=== PATIENT | male | born 1960 | race Caucasian/White ===

== ENCOUNTER 2016-09-11 16:03 | Inpatient (IN) | payer BC ==
[~2016-09-11 16:03] MED LIST: GLYCOPYRROLATE INJ 0.4 MG/2 ML VIAL ONE; NEOSTIGMINE METHYLSULFATE 10 MG/10 ML VIAL ONE; SUCCINYLCHOLINE CHLORIDE INJ 200 MG/10 ML VIAL ONE; VECURONIUM BROMIDE INJ 10 MG VIAL IV ONE
--- NOTE | 2016-09-11 16:31 | ER Document Report ---
ED Medical Screen (RME) - General Chief Complaint: Abdominal Pain Stated Complaint: RIGHT SIDE ABDOMINAL PAIN Time Seen by Provider: 09/11/16 16:19 Mode of Arrival: Ambulatory Information source: Patient TRAVEL OUTSIDE OF THE [place] IN LAST 30 DAYS: No - HPI Patient complains to provider of: Right-sided abdominal pain Associated Symptoms: Nausea Notes: 09/11/16 16:30 Patient is a 56-year-old male who presents to the emergency room complaining of right-sided abdominal pain as been going on since Monday, he reports nausea with decreased appetite but no vomiting or diarrhea, reports subjective fevers, no history of similar symptoms previously, he has a history of gastric bypass, from where patient points to where his pain is while sitting up in a chair in the triage area it is in the middle portion of the right abdomen - Related Data Allergies/Adverse Reactions: No Known Allergies Allergy (Unverified 09/11/16 16:14) Past Medical History Renal/ Medical History: Denies: Hx Peritoneal Dialysis Past Surgical History: Reports: Hx Cardiac Surgery - 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
[2016-09-11 17:20] LABS: APPEARANCE,URINE CLEAR; BILIRUBIN,URINE NEGATIVE (NEGATIVE); GLUCOSE, URINE NEGATIVE (NEGATIVE); KETONES,URINE NEGATIVE (NEGATIVE); LEUKOCYTE ESTERASE,URINE NEGATIVE (NEGATIVE); NITRITE,URINE NEGATIVE (NEGATIVE); PROTEIN,URINE 30 mg/dL (NEGATIVE)
[2016-09-11 17:26] LABS: ABSOLUTE LYMPHOCYTES (AUTO) 0.6 10^3/uL (0.5-4.7); ABSOLUTE MONOCYTES (AUTO) 0.6 10^3/uL (0.1-1.4); ABSOLUTE NEUT (AUTO) 8.1 10^3/uL (1.7-8.2); BASOPHILS % (AUTO) 0.1 % (0-2); EOSINOPHILS % (AUTO) 0.2 % (0-6); HEMATOCRIT 47.6 % (37.9-51.0); HEMOGLOBIN 16.6 g/dL (13.5-17.0); HGB HCT DIFFERENCE 2.2; LYMPHOCYTES % (AUTO) 6.8 % (13-45); MEAN CORPUSCULAR HEMOGLOBIN 32.1 pg (27.0-33.4); MEAN CORPUSCULAR HGB CONC 34.8 g/dL (32.0-36.0); MEAN CORPUSCULAR VOLUME 92 fl (80-97); MONOCYTES % (AUTO) 6.2 % (3-13); RED BLOOD COUNT 5.17 10^6/uL (4.35-5.55); RED CELL DISTRIBUTION WIDTH 12.8 % (11.5-14.0); SEGMENTED NEUTROPHILS % (AUTO) 86.7 % (42-78); WHITE BLOOD COUNT 9.4 10^3/uL (4.0-10.5)
[2016-09-11 17:30] LABS: ALANINE AMINOTRANSFERASE 26 U/L (21-72); ALBUMIN 4.6 g/dL (3.5-5.0); ALKALINE PHOSPHATASE 107 U/L (38-126); ANION GAP 12 (5-19); ASPARTATE AMINO TRANSFERASE 22 U/L (17-59); BILIRUBIN,DIRECT 0.4 mg/dL (0.0-0.4); BILIRUBIN,TOTAL 3.3 mg/dL (0.2-1.3); BLOOD UREA NITROGEN 15 mg/dL (7-20); CALCIUM 9.4 mg/dL (8.4-10.2); CARBON DIOXIDE 28 mmol/L (22-30); CHLORIDE 101 mmol/L (98-107); CREATININE RESULT 1.06 mg/dL (0.52-1.25); GLUCOSE 120 mg/dL (75-110); LIPASE 81.5 U/L (23-300); POTASSIUM 4.3 mmol/L (3.6-5.0); SODIUM 140.9 mmol/L (137-145); TOTAL PROTEIN 8.4 g/dL (6.3-8.2)
[2016-09-11] MEDS ORDERED: ACETAMINOPHEN 325 MG TABLET PO ONE (18:57)
[2016-09-11] MEDS ORDERED: NORMAL SALINE 1000 ML 1,000 ML IV ONE (19:08)
[2016-09-11] MEDS ORDERED: MORPHINE SULFATE 10 MG/ML INJ IV PRN ×2 (19:08→22:23)
--- NOTE | 2016-09-11 19:09 | ER Document Report ---
ED General - General Chief Complaint: Abdominal Pain Stated Complaint: RIGHT SIDE ABDOMINAL PAIN Time Seen by Provider: 09/11/16 16:19 Mode of Arrival: Ambulatory Notes: Patient is a 56-year-old male with past medical history of hypertension, prior gastric bypass surgery who presents with 2 days of progressively worsening right lower quadrant abdominal pain with associated nausea and fever. Patient states that the pain initially started as being a mild, dull, aching pain to the right lower abdomen has become progressively more severe since onset. Nothing improves or worsens the pain. He denies any history of similar symptoms in the past. States became concerned when he developed a fever today with associated chills. He has not seen his primary care doctor regarding today 's concerns. He has not had any vomiting or diarrhea. TRAVEL OUTSIDE OF THE [place] IN LAST 30 DAYS: No - Related Data Allergies/Adverse Reactions: No Known Allergies Allergy (Unverified 09/11/16 16:14) Home Medications: Current Home Medications Calcium Carbonate/Vitamin D3 [Calcium 500 + Vit D Caplet] 2 each PO DAILY [History] Cetirizine HCl [Zyrtec 10 mg Tablet] 1 tab PO DAILY 09/11/16 [History] Cyanocobalamin (Vitamin B-12) [Vitamin B-12 SL 1000 mcg Tablet] 1,000 mcg SL DAILY 09/11/16 [History] Fluticasone Propionate [Flonase Nasal [place] 50 Mcg/[place] 16 gm] 2 sprays NASL Q12 09/11/16 [History] Multivitamins with Iron [One Daily with Iron] 1 each PO DAILY 09/11/16 [History] Past Medical History - General Information source: Patient - Social History Smoking Status: Never Smoker Chew tobacco use (# tins/day): No Frequency of alcohol use: Social Drug Abuse: None Lives with: Spouse/Significant other Family History: Reviewed & Not Pertinent Renal/ Medical History: Denies: Hx Peritoneal Dialysis Past Surgical History: Reports: Hx Cardiac Surgery - 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 HENT: Negative for sore throat. Eyes: Negative for visual changes. Cardiovascular: Negative for chest pain. Respiratory: Negative for shortness of breath. Gastrointestinal: Positive for abdominal pain Genitourinary: Negative for dysuria. Musculoskeletal: Negative for back pain. Skin: Negative for rash. Neurological: Negative for headaches, weakness or numbness. 10 point ROS negative except as marked above and in HPI. Physical Exam - Vital signs Vitals: Temp Pulse Resp BP Pulse Ox 99.0 F 84 18 124/77 95 09/11/16 16:14 09/11/16 16:14 09/11/16 16:14 09/11/16 16:14 09/11/16 16:14 Interpretation: Normal Notes: PHYSICAL EXAMINATION: GENERAL: Appears mildly uncomfortable but in no acute distress HEAD: Atraumatic, normocephalic. EYES: Pupils equal round and reactive to light, extraocular movements intact, sclera anicteric, conjunctiva are normal. ENT: nares patent, oropharynx clear without exudates. Moist mucous membranes. NECK: Normal range of motion, supple without lymphadenopathy LUNGS: Breath sounds clear to auscultation bilaterally and equal. No wheezes rales or rhonchi. HEART: Regular rate and rhythm without murmurs ABDOMEN: Soft, focal tenderness of the right lower quadrant with associated voluntary guarding and rebound tenderness. Abdomen is otherwise nontender EXTREMITIES: Normal range of motion, no pitting or edema. No cyanosis. NEUROLOGICAL: No focal neurological deficits. Moves all extremities spontaneously and on command. PSYCH: Normal mood, normal affect. SKIN: Warm, Dry, normal turgor, no rashes or lesions noted. Course - Re-evaluation Re-evalutation: 09/11/16 19:08 Patient presents with a history and exam most consistent with acute appendicitis. He has focal right lower quadrant tenderness on examination with rebound tenderness as well as voluntary guarding. He is febrile here to 101F. Will obtain CT abdomen pelvis and consult with surgery 09/11/16 20:16 CT confirms acute appendicitis. 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 - Vital Signs Vital signs: Temp Pulse Resp BP Pulse Ox 97.9 F 63 15 100/63 97 09/12/16 01:45 09/12/16 01:45 09/12/16 01:45 09/12/16 01:45 09/12/16 01:45 - Laboratory Result Diagrams: 09/11/16 16:47 09/11/16 16:47 Laboratory results interpreted by me: 09/11/16 09/11/16 09/11/16 16:47 16:47 16:50 Seg Neutrophils % 86.7 H Lymphocytes % 6.8 L Glucose 120 H Total Bilirubin 3.3 H Total Protein 8.4 H Urine Protein 30 H Urine Urobilinogen 4.0 H - Diagnostic Test Radiology reviewed: Reports reviewed Discharge - Discharge Clinical Impression: Acute appendicitis Qualifiers: Acute appendicitis type: with localized peritonitis Qualified Code(s): K35.3 - Acute appendicitis with localized peritonitis Condition: Fair Disposition: ADMITTED OBSERVATION Admitting Provider: Surgicalist - [facility] Admitted: OR
--- NOTE | 2016-09-11 20:01 | RADIOLOGY REPORT (SQ) ---
EXAM DESCRIPTION: CT ABD/PELVIS WITH IV ONLY COMPLETED DATE/TIME: 09/11/2016 7:50 pm REASON FOR STUDY: eval appendicitis COMPARISON: None. TECHNIQUE: CT scan of the abdomen and pelvis performed using helical scanning technique with dynamic intravenous contrast injection. No oral contrast. Images reviewed with lung, soft tissue, and bone windows. Reconstructed coronal and sagittal MPR images reviewed. Delayed images for evaluation of the urinary system also acquired. All images stored on PACS. All CT scanners at this facility use dose modulation, iterative reconstruction, and/or weight based d osing when appropriate to reduce radiation dose to as low as reasonably achievable (ALARA). [facility]: Dose Right [facility]: CareDose [facility]: Dose Right [facility]: Teradose 4D [facility]: PagosOnLine CONTRAST TYPE AND DOSE: contrast/concentration: Isovue 370.00 mg/ml; Total Contrast Delivered: 99.0 ml; Total Saline Delivered: 61.0 ml RENAL FUNCTION: Creatinine 1.06 RADIATION DOSE: Up-to-date CT equipment and radiation dose reduction techniques were employed. CTDIv ol: 20.9 - 21.1 mGy. DLP: 2280 mGy-cm.. LIMITATIONS: None. FINDINGS: LOWER CHEST: No significant findings. No nodules or infiltrates. LIVER: Normal size. No masses. No dilated ducts. SPLEEN: Normal size. No focal lesions. PANCREAS: No masses. No significant calcifications. No adjacent inflammation or peripancreatic fluid collections. Pancreatic duct not dilated. GALLBLADDER: No identified stones by CT criteria. No inflammatory changes to suggest cholecystitis. ADRENAL GLANDS: No significant masses or asymmetry. RIGHT KIDNEY AND URETER: No solid masses. No significant calcifications. No hydronephrosis or hyd roureter. LEFT KIDNEY AND URETER: No solid masses. No significant calcifications. No hydronephrosis or hydr oureter. AORTA AND VESSELS: No aneurysm. No dissection. Renal arteries, SMA, celiac without stenosis. RETROPERITONEUM: No retroperitoneal adenopathy, hemorrhage or masses. BOWEL AND PERITONEAL CAVITY: No masses or inflammatory changes. No free fluid or peritoneal masses. APPENDIX: Dilated appendix with appendicolith. Periappendiceal inflammatory changes. PELVIS: No mass. No free fluid. Normal bladder. ABDOMINAL WALL: No masses. No hernias. BONES: No significant or acute findings. OTHER: No other significant finding. IMPRESSION: Acute appendicitis without abscess. COMMENT: Pertinent findings on the imaging study reported as a CRITICAL RESULT to ALLEN hart t19:55 on 09/11/2016. Category of Critical Result: Acute appendicitis TECHNICAL DOCUMENTATION: JOB ID: [id number] Quality ID # [id number]: Final reports with documentation of one or more dose reduction techniques (e.g., Au tomated exposure control, adjustment of the mA and/or kV according to patient size, use of iterative reconstruction technique) 2010 [employer]- All Rights Reserved
[2016-09-11] MEDS ORDERED: PIPERACILLIN/TAZOBACTAM 3.375 GM VIAL IV ONE (20:16)
--- NOTE | 2016-09-11 20:58 | HISTORY AND PHYSICAL E ---
History and Physical NAME: BOOGIE FREDERICK : 1960 AGE: 56Y ADMITTED: 09/11/2016 ROOM: ED01 HISTORY OF PRESENT ILLNESS: A 56-year-old gentleman presented to the emergency room with a 2-day history of abdominal pain mostly in the lower abdomen and right lower quadrant area with nausea. Evaluation in the ER revealed acute appendicitis on a CT scan. PAST MEDICAL HISTORY: History of osteoarthritis, no other major medical problems. PAST SURGICAL HISTORY: None. REVIEW OF SYSTEMS: As per examination. PHYSICAL EXAMINATION: GENERAL: He is a very pleasant gentleman, not in any distress, afebrile. HEAD/NECK: Revealed no lymphadenopathy or masses. RESPIRATORY: Both lungs good air entry. CARDIOVASCULAR: Heart sounds regular. No murmurs. ABDOMINAL: Soft. He has tenderness in the right lower quadrant area with minimal rebound, no palpable masses and no hernia. EXTREMITIES: Warm and well perfused. DIAGNOSTIC DATA: I reviewed his CT scan which revealed acute appendicitis. IMPRESSION: Acute appendicitis. PLAN: 1. N.P.O. 2. IV Zosyn started for an emergency laparoscopic appendectomy tonight. DICTATING PHYSICIAN: REID WASHINGTON M.D. [id number] PHY#: [id number] ID: [id number] JOB#: [id number] ACCT: [id number] cc:REID WASHINGTON M.D. >
[2016-09-11] MEDS ORDERED: DEXAMETHASONE SOD PHOSPHATE INJ 4 MG/1 ML VIAL ONE (21:06)
[2016-09-11] MEDS ORDERED: FENTANYL CITRATE INJ/PF 100 MCG/2 ML AMPUL ONE ×2 (21:06)
[2016-09-11] MEDS ORDERED: MIDAZOLAM 2 MG/2 ML INJ ONE (21:06)
[2016-09-11] MEDS ORDERED: LIDOCAINE 2% INJ-PF (20 MG/ML) 10 ML AMPUL ONE (21:06)
[2016-09-11] MEDS ORDERED: ONDANSETRON HCL INJ/PF 4 MG/2 ML SDV ONE (21:07)
[2016-09-11] MEDS ORDERED: PROPOFOL INJ 200 MG/20 ML VIAL IV ONE (21:07)
[2016-09-11] MEDS ORDERED: ACETAMINOPHEN 100 ML IV ONE (21:07)
[2016-09-11] MEDS ORDERED: BUPIVACAINE HCL 0.5%-EPI 1:200000 INJ/PF 30 ML VIAL ONE (21:32)
[2016-09-11] MEDS ORDERED: MEPERIDINE HCL/PF INJ 25 MG/1 ML DISP.SYRIN IV PRN (22:23)
[2016-09-11] MEDS ORDERED: PROMETHAZINE HCL INJ 25 MG/1 ML VIAL IV PRN ×2 (22:23)
[2016-09-11] MEDS ORDERED: ONDANSETRON HCL INJ/PF 4 MG/2 ML SDV IV PRN (22:23)
[2016-09-11] MEDS ORDERED: DIPHENHYDRAMINE HCL 50 MG/ML VIAL IV PRN (22:23)
[2016-09-11] MEDS ORDERED: FENTANYL CITRATE INJ/PF 100 MCG/2 ML AMPUL IV PRN ×3 (22:23)
[2016-09-11] MEDS ORDERED: OXYCODONE-ACETAMINOPHEN 5-325 MG TABLET PO PRN ×2 (22:23)
[2016-09-12] MEDS ORDERED: HYDROMORPHONE HCL INJ/PF 2 MG/ML AMPULE IV PRN (00:21)
[2016-09-12] MEDS ORDERED: HYDROCODONE/ACETAMINOPHEN 5-325 MG TABLET PO PRN (00:22)
[2016-09-12] MEDS ORDERED: ONDANSETRON 4 MG TAB.RAPDIS PO PRN (00:22)
[2016-09-12] MEDS ORDERED: PIPERACILLIN/TAZOBACTAM 3.375 GM VIAL IV PRN (00:25)
[2016-09-12] MEDS: POTASSI CL 20 MEQ/D5-1/2NS 1L 1000 ML IV PRN ×2 (00:57→10:51)
[2016-09-12] MEDS ORDERED: PIPERACILLIN SODIUM/TAZOBACTAM 3.375 GM in NORMAL SALINE 100 ML IV SCH ×2 (06:00→10:00)
--- NOTE | 2016-09-12 09:44 | OPERATIVE REPORT E ---
Operative Report NAME: BOOGIE FREDERICK : 1960 AGE: 56Y DATE OF SURGERY: 09/11/2016 ROOM: 533 PREOPERATIVE DIAGNOSIS: Acute appendicitis. POSTOPERATIVE DIAGNOSIS: Acute appendicitis with abdominal pelvic and paracolic abscess most likely in the appendix and also there was a considerable amount of inflammation on the cecum. He had what seemed to be a coloscopy. I would expect to watch him closely, possibly localized perforation around the cecum or if he had any polypectomy in the recent past. PROCEDURE PERFORMED: 1. Exploratory laparoscopy with laparoscopic appendectomy. 2. Laparoscopy done of the paracolic and pelvic abscesses along with a washout. SURGEON: REID WASHINGTON M.D. ANESTHESIA: General. ESTIMATED BLOOD LOSS: Less than 20 mL. SPECIMEN: Appendix. HISTORY AND INDICATION: The patient presented with 2 days of abdominal pain, severe. CT scan done which revealed a lot of inflammation in the presacral area and appendiceal area, appendicitis, and he needed to be taken to the operating room with informed consent emergently. He was started on Zosyn. Explained about indications, risks, benefits, and complications to the surgery including but limited to infection, bleeding, pain, abscess, recurrence of mass, and need for reoperation. with informed consent. DESCRIPTION OF OPERATION: After induction of general anesthesia, in the supine position with SCD boots, patient was given IV antibiotic Zosyn, abdomen was cleaned and draped as a sterile field. A supraumbilical 1-cm incision was made and a 12 mm trocar inserted through the fascia under direct visualization. Under direct laparoscopic visualization, after creating pneumoperitoneum, a 5 mm trocar was inserted in the left upper quadrant area. Another 5 mm trocar was inserted in the suprapubic area. Findings: Significant amount of fluid in the presacral area and the paracolic gutter. There was an abscess in the presacral area, paracolic gutter, and also in the pelvic cavity. All of these abscesses were loculated. The loculated abscesses were drained completely, and then the pelvic cavity, abdominal cavity, and paracolic gutters subhepatic area, copiously irrigated with warm saline up to 6 L and then suctioned out completely. Then the cecum, appendix, and were mobilized. There was a type 2 marker from a possible previous colonoscopy present, and there was inflammation around the cecum and also around the appendix. The appendix did seem to be inflamed massively. It was partially necrotic. So, appendix, cecum, and was mobilized. The mesoappendix was divided using the clips and then seal device. The appendix was dissected down all the way to the cecum, and then part of the cecum close to appendix was divided by using the 45 stapler for a perfect staple line. While scoring the staple line which was perfectly secured, and then the specimen was retrieved through the EndoCatch bag. After that, abdominal cavity, pelvic cavity, pericolic gutters copiously irrigated and suctioned until the effluent was absolutely clear. A Abelardo drain was placed in the paracolic area on the right side including pelvic cavity. The 5 mm trocars . After , the trocars were all removed 3-0 Monocryl for the skin. Dressings applied. The patient did not encounter any problems. He was taken to the recovery room in good condition. He is being recommended as an inpatient because of abdominal abscess, possible ruptured gangrenous appendix, and also to closely evaluate the patient for a possible cecum pathology. He needs to be an inpatient admission. DICTATING PHYSICIAN: REID WASHINGTON M.D. [id number] PHY#: [id number] ID: [id number] JOB#: [id number] ACCT: [id number] cc:REID WASHINGTON M.D. >
[2016-09-12] MEDS ORDERED: DOCUSATE SODIUM 100 MG CAPSULE PO SCH (10:00)
[2016-09-12] MEDS: ENOXAPARIN SODIUM INJ 40 MG/0.4 ML DISP.SYRIN SUBCUT SCH (10:26)
[2016-09-12] MEDS: PIPERACILLIN SODIUM/TAZOBACTAM 3.375 GM in NORMAL SALINE 100 ML IV SCH ×2 (10:50→17:25)
--- NOTE | 2016-09-12 14:25 | PDOC PROGRESS REPORT ---
Subjective Progress Note for:: 09/12/16 Subjective:: Patient is 1 day status post laparoscopic appendectomy for acute appendicitis with peritonitis and drain placement. He is doing well, tolerating clear liquids, and ambulating. Physical Exam Vital Signs: Temp Pulse Resp BP Pulse Ox 97.8 F 60 18 113/69 97 09/12/16 07:25 09/12/16 11:26 09/12/16 11:26 09/12/16 11:26 09/12/16 11:26 Intake & Output 09/11/16 09/12/16 09/13/16 06:59 06:59 06:59 Intake Total 5450 Output Total 4290 Balance 1160 Weight 128 kg General appearance: PRESENT: no acute distress GI/Abdominal exam: PRESENT: other - Open sites healing satisfactorily with overlying glue. Drain with serosanguineous discharge; drain left in place. The abdomen is otherwise benign. Results Impressions: Abdomen/Pelvis CT 09/11/16 19:08 IMPRESSION: Acute appendicitis without abscess. Assessment & Plan - Diagnosis (1) Acute appendicitis Qualifiers: Acute appendicitis type: with localized peritonitis Qualified Code(s): K35.3 - Acute appendicitis with localized peritonitis Is this a current diagnosis for this admission?: YesPlan: 1 day status post laparoscopic appendectomy, doing well. Plan: 1. We will continue intravenous antibiotics today and tomorrow, then likely switch to p.o. antibiotics and discharge patient home 2. We will advance diet to full liquids.
[2016-09-12] MEDS: HYDROCODONE/ACETAMINOPHEN 5-325 MG TABLET PO PRN ×2 (17:24→23:20)
[2016-09-12] MEDS: DOCUSATE SODIUM 100 MG CAPSULE PO SCH (17:25)
[2016-09-13] MEDS: POTASSI CL 20 MEQ/D5-1/2NS 1L 1000 ML IV PRN ×2 (00:12→11:34)
[2016-09-13] MEDS: PIPERACILLIN SODIUM/TAZOBACTAM 3.375 GM in NORMAL SALINE 100 ML IV SCH ×2 (01:54→10:18)
[2016-09-13 04:35] LABS: HEMATOCRIT 37.9 % (37.9-51.0); HGB HCT DIFFERENCE 1.1; MEAN CORPUSCULAR HEMOGLOBIN 32.3 pg (27.0-33.4); MEAN CORPUSCULAR HGB CONC 34.4 g/dL (32.0-36.0); MEAN CORPUSCULAR VOLUME 94 fl (80-97); RED BLOOD COUNT 4.04 10^6/uL (4.35-5.55); RED CELL DISTRIBUTION WIDTH 12.7 % (11.5-14.0)
[2016-09-13 04:47] LABS: ANION GAP 6 (5-19); BLOOD UREA NITROGEN 17 mg/dL (7-20); CALCIUM 8.6 mg/dL (8.4-10.2); CARBON DIOXIDE 24 mmol/L (22-30); CHLORIDE 105 mmol/L (98-107); CREATININE RESULT 0.85 mg/dL (0.52-1.25); GLUCOSE 160 mg/dL (75-110); POTASSIUM 4.8 mmol/L (3.6-5.0); SODIUM 135.2 mmol/L (137-145)
[2016-09-13] MEDS: HYDROCODONE/ACETAMINOPHEN 5-325 MG TABLET PO PRN ×2 (07:23→11:37)
[2016-09-13] MEDS ORDERED: BISACODYL 10 MG SUPP.RECT PR ONE (09:00)
--- NOTE | 2016-09-13 09:43 | DISCHARGE SUMMARY E ---
Discharge Summary NAME: BOOGIE FREDERICK : 1960 AGE: 56Y ADMITTED: 09/11/2016 DISCHARGED: 09/13/2016 FINAL DIAGNOSIS: Perforated acute appendicitis. PROCEDURE DONE: Laparoscopic appendectomy and evacuation of pericolic and pelvic abscesses on 09/11/2016. SUMMARY: This is a 56-year-old male who came in for 2 days of abdominal pain. He had acute appendicitis by CAT scan and then underwent laparoscopic appendectomy and evacuation of abscesses on 09/11/2016. Postoperatively patient did well. On 09/13/2016, the drain was removed and patient tolerated a soft diet. He will be discharged on p.o. Cipro and Flagyl for the next 5 days. To be followed up in the clinic in about a week. Patient advised not to do any lifting of more than 10 pounds until seen in the clinic. DICTATING PHYSICIAN: JOSE ANGEL BARRETT M.D. [id number] PHY#: [id number] ID: [id number] JOB#: [id number] ACCT: [id number] cc:[facility], JOSE ANGEL SINHA M.D, M.D. [facility] >
[2016-09-13] MEDS: DOCUSATE SODIUM 100 MG CAPSULE PO SCH (10:18)
[2016-09-13] MEDS: ENOXAPARIN SODIUM INJ 40 MG/0.4 ML DISP.SYRIN SUBCUT SCH (10:19)
[2016-09-13 16:33] VITALS: BP 114/61
== END 2016-09-13 17:55 | disposition home or self-care (01) | DRG 340 ==
LOC: ER 16:03 → UNDOADMOB 20:37 → EH 20:37 → OBSVTOIN 23:30 → 5 23:56
PROVIDERS: ATTEND Colon & Rectal Surgery
PROC: 0DTJ4ZZ Resection of Appendix, Percutaneous Endoscopic Approach (ICD-10-PCS; principal; 2016-09-11 21:50)
DX: K35.3 Acute appendicitis with localized peritonitis (principal); M19.90 Unspecified osteoarthritis, unspecified site; Z98.84 Bariatric surgery status
CPT/HCPCS: 36415; 74177; 80048; 80053; 81001; 83690; 840; 85025; 85027; 87086; 88304; 96361; 96365; 96375; 99285; J0131; J0330; J1100; J1650; J2250; J2270; J2405; J2543; J2704; J3010; J3480; J3490; J7030

== ENCOUNTER 2016-12-24 14:32 | Emergency (ER) | payer BC ==
[2016-12-24] MEDS ORDERED: DIPH/PERTUSS(ACELL)/TETANUS VAC/PF 0.5 ML SYR (>=10YO) IM ONE (14:59)
[2016-12-24] MEDS ORDERED: LIDOCAINE 1% INJ-PF (10 MG/ML) 30 ML SDV INJ ONE (14:59)
[2016-12-24] MEDS ORDERED: ACETAMINOPHEN 325 MG TABLET PO ONE (15:00)
[2016-12-24] MEDS ORDERED: AMOXICILLIN TR/POT CLAVULANATE 500-125 MG TAB PO ONE (15:00)
--- NOTE | 2016-12-24 15:01 | ER Document Report ---
ED Animal Bite - General Chief Complaint: Dog Bite Stated Complaint: RIGHT ARM INJURY Time Seen by Provider: 12/24/16 14:43 Mode of Arrival: Ambulatory Information source: Patient Notes: 56-year-old male presents to ED for complaint of a dog bite to his right arm. He states that he just adopted a dog this about 2 years old is a bully retriever lab mix. States that his daughter brought over her dog and the 2 dogs for lunch and need each other so he tried to pull them apart and he got a tooth across his arm causing a laceration to his right arm. He states his tetanus is not up-to-date. He states the dogs were not attacking him he was trying to break up the dogs. TRAVEL OUTSIDE OF THE [place] IN LAST 30 DAYS: No - HPI Location of injury: RUE Severity of injury: Bitten Onset: Just prior to arrival Quality of pain: Achy, Sharp Pain Level: 1 Severity: Mild Context of attack: Animals fighting Type of animal: Dog Appearance of animal: Appeared well Animal's immunizations: UTD Animal captured or known: Yes Animal control notified: Yes Animal control form completed: Yes - Related Data Allergies/Adverse Reactions: No Known Allergies Allergy (Verified 12/24/16 14:35) Past Medical History - General Information source: Patient - Social History Smoking Status: Former Smoker Cigarette use (# per day): No Chew tobacco use (# tins/day): No Smoking Education Provided: No Frequency of alcohol use: Social Drug Abuse: None Lives with: Family Family History: CAD, COPD, DM, Hyperlipidemia, Hypertension, Malignancy. denies : Arthritis, CVA, Thyroid Disfunction Patient has suicidal ideation: No Patient has homicidal ideation: No - Past Medical History Cardiac Medical History: Reports: Other - VSD Pulmonary Medical History: Reports: None EENT Medical History: Reports: None Neurological Medical History: Reports: None Endocrine Medical History: Reports: None Renal/ Medical History: Reports: None Malignancy Medical History: Reports None GI Medical History: Reports: Hx Gastritis, Hx Gastroesophageal Reflux Disease, Hx Colonoscopy Musculoskeltal Medical History: Reports Hx Arthritis, Reports Hx Musculoskeletal Deformity, Reports Hx Musculoskeletal Trauma Skin Medical History: Reports None Psychiatric Medical History: Reports: Hx Depression Traumatic Medical History: Reports: Hx Fractures - Nose Past Surgical History: Reports: Hx Appendectomy, Hx Cardiac Surgery - VSD closed at age 7, Hx Gastric Bypass Surgery, Hx Nose Surgery, Hx Orthopedic Surgery - Meniscus repair - Immunizations Immunizations up to date: Yes Hx Diphtheria, Pertussis, Tetanus Vaccination: Yes - 12/24/2016 Review of Systems - Review of Systems Constitutional: No symptoms reported EENT: No symptoms reported Cardiovascular: No symptoms reported Respiratory: No symptoms reported Gastrointestinal: No symptoms reported Genitourinary: No symptoms reported Male Genitourinary: No symptoms reported Musculoskeletal: No symptoms reported Skin: Other - Laceration to right arm from a dog bite. Hematologic/Lymphatic: No symptoms reported Neurological/Psychological: No symptoms reported Physical Exam - Vital signs Vitals: Temp Pulse Resp BP Pulse Ox 97.4 F 94 12 130/87 H 98 12/24/16 14:35 12/24/16 14:35 12/24/16 14:35 12/24/16 14:35 12/24/16 14:35 Interpretation: Normal - General General appearance: Appears well, Alert - HEENT Head: Normocephalic, Atraumatic Eyes: Normal Pupils: PERRL - Respiratory Respiratory status: No respiratory distress Chest status: Nontender Breath sounds: Normal Chest palpation: Normal - Cardiovascular Rhythm: Regular Heart sounds: Normal auscultation Murmur: No - Abdominal Inspection: Normal Distension: No distension Bowel sounds: Normal Tenderness: Nontender Organomegaly: No organomegaly - Back Back: Normal, Nontender - Extremities General upper extremity: Normal inspection, Nontender, Normal color, Normal ROM , Normal temperature General lower extremity: Normal inspection, Nontender, Normal color, Normal ROM , Normal temperature, Normal weight bearing. No: Sandie's sign - Neurological Neuro grossly intact: Yes Cognition: Normal Orientation: AAOx4 Louise Coma Scale Eye Opening: Spontaneous Louise Coma Scale Verbal: Oriented [place] Coma Scale Motor: Obeys Commands [place] Coma Scale Total: 15 Speech: Normal Motor strength normal: LUE, RUE, LLE, RLE Sensory: Normal - Psychological Associated symptoms: Normal affect, Normal mood - Skin Skin Temperature: Warm Skin Moisture: Dry Skin Color: Normal Skin irregularity: Laceration - Right forearm laceration from a dog bite. Location of irregularity: Extremities - Right forearm laceration Irregularity with: Tenderness Course - Re-evaluation Re-evalutation: 12/24/16 20:31 1 suture placed in AA to pull the skin together. Patient was placed on Augmentin. The dog paper was filled out and sent to the animal control. Patient was given instructions on cleaning the site. Tetanus immunization was administered. Patient was discharged home to follow-up in 2 days to check for signs and symptoms of infection and 5-7 days to remove the suture. - Vital Signs Vital signs: Temp Pulse Resp BP Pulse Ox 97.4 F 97 16 120/81 99 12/24/16 14:35 12/24/16 15:59 12/24/16 15:59 12/24/16 15:59 12/24/16 15:59 Procedures - Laceration/Wound Repair Right forearm Time completed: 15:48 Wound length (cm): 2.5 Wound's Depth, Shape: Into muscle, Linear Laceration pre-procedure: Sterile PPE donned, Sterile drapes applied, Shur- Clens applied Anesthetic type: 1% Lidocaine Volume Anesthetic (mLs): 4 Wound explored: Contaminated Irrigated w/ Saline (mLs): 400 Wound Repaired With: Sutures Suture Size/Type: 4:0, Ethilon Number of Sutures: 1 Post-procedure wound care: Sterile dressing applied Post-procedure NV exam normal: Yes Complications: Yes Discharge - Discharge Clinical Impression: Dog bite of right forearm Qualifiers: Encounter type: initial encounter Qualified Code(s): S51.851A - Open bite of right forearm, initial encounter Condition: Stable Disposition: HOME, SELF-CARE Instructions: Family Physicians / Practices Additional Instructions: Animal Bites Animal bites are often heavily contaminated with bacteria. In spite of thorough cleansing and proper treatment, these wounds frequently become infected. Bite wounds of the hands are especially prone to complications. Bites are dressed, if possible. Large wounds may require suturing after internal cleansing. Because of infection risk, some large wounds must remain unstitched. Your doctor is trained to advise you on the best treatment for your bite. Call the doctor at once if the wound becomes red, swollen, warm, increasingly painful, or if it begins to drain. Danger signs also include red streaks up the involved extremity, swollen glands in the groin or under the arm , or fever and chills. The risk of rabies from domestic animals is very low. Bats, sick animals, and wild animals may expose you to rabies. The physician, or the health department, will inform you if you will need to receive the rabies vaccine. SOAP CLEANSING: Gently wash the wound daily using a mild soap (like Ivory, Phisoderm, Neutrogena). Use warm water, rubbing gently until all debris, ooze, and crusting have been washed from the wound. Allow to dry briefly (about 10 minutes) after cleaning. Repeat this cleansing at least three times a day for the first two days and then once or twice a day. ANTIBIOTIC OINTMENT PROTECTION: Your wounds are such that dressing them is not practical or optional. After cleansing, you should apply a thin coating of antibiotic ointment ( Bacitracin, not Neosporin) to the wounds at least three times daily. This lessens infection risk, and may decrease the amount of scarring. Use a q-tip or dull butter knife, not your finger, to apply this ointment. Any debris or ooze which builds up in the ointment should be gently rubbed off with a sterile gauze pad. Harder crusting may need to be gently scrubbed off with a clean wash cloth with soap and warm water, perhaps applying a warm, wet wash cloth to the wound for ten minutes first. Development of redness, severe itching, or blistering may mean allergy to the ointment. See the doctor. TETANUS IMMUNIZATION GIVEN: You have been given an immunization against tetanus. Please record this in your records. In general, a booster is needed only once every 10 years. The tetanus shot protects against tetanus or "lockjaw," which is a complication of certain wound infections (the tetanus shot cannot protect against the actual infection). The immunization site may become warm and red due to local reaction. If this occurs, apply warm compresses and take aspirin or ibuprofen to reduce inflammation and discomfort. Return for evaluation if the reaction becomes severe. Augmentin Augmentin is a mixture of amoxicillin and clavulanate. Amoxicillin is a member of the penicillin family. It covers the germs likely to cause ear, bronchial, and urinary infections better than plain penicillin. The addition of clavulanate allows it to cover staph infections of the skin, as well as resistant cases of ear and sinus infections. Your physician has chosen Augmentin for you because of the special nature of your situation. Augmentin is best taken with meals. Nausea after taking the medication is rare, but can occur. Diarrhea can occur, particularly in small children. Vaginal yeast infections, and oral thrush in infants are also common. Contact your physician if these problems occur. Allergy to penicillins is common. If you have had an allergic reaction to any drug of the penicillin family, you should never take any other penicillin. Notify your doctor at once if you develop hives, shortness of breath, swelling, or faintness. FOLLOW-UP CARE: Please return in ___2__ days for an infection check and dressing change. Your sutures should be removed in ___7__ days. To facilitate a timely removal of your sutures, you may return to the Emergency Department at [facility]. You do not need to call for an appointment, but the best time to come in for suture removal is early in the morning. If you have been referred to another physician for follow-up care, call that physicians office for an appointment as you were instructed. If you experience a significant change in your laceration, or if you are concerned there may be an infection (swelling, redness, drainage, increasing tenderness, red streaks, tender lumps in the armpit or groin above the laceration, or fever) , return to the Emergency Department immediately re-evaluation. Prescriptions: Amox Tr/Potassium Clavulanate [Augmentin 875-125 Tablet] 1 tab PO BID 10 Days tablet Forms: Elevated Blood Pressure
[2016-12-24 16:01] VITALS: BP 120/81
== END 2016-12-24 16:01 | disposition home or self-care (01) ==
LOC: ER 14:32
DX: S51.851A Open bite of right forearm, initial encounter (principal); W54.0XXA Bitten by dog, initial encounter; Y93.K9 Activity, other involving animal care; Z87.891 Personal history of nicotine dependence; Z23 Encounter for immunization
CPT/HCPCS: 90471; 90715; 99283

== ENCOUNTER → 2019-07-27 | Outpatient (CLI) | payer BC ==
--- NOTE | 2019-07-27 13:28 | ER RDC ASSESSMENT REPORT ---
Intake - In the Last 14 days Have you traveled outside [place]?: No Have you been in close contact with someone CONFIRMED: No Worked in Healthcare?: No - Symptoms Subjective Fever([place] feverish): No Chills: Yes Muscule Aches: No Runny Nose: Yes Sore Throat: No Cough (New or worsening chronic cough): Yes Shortness of breath: Yes Nausea or Vomiting: No Headache: Yes Abdominal Pain: No Diarrhea(3 or more loose stools in last 24 hours): No - Do you have any of the following Chronic lung disease: Asthma or emphysema or COPD: No Cystic Fibrosis: No Diabetes: No High Blood Pressure: No Cardiovascular Disease: Yes Cardiovascular Disease Comment: History of atrial fibrillation. Chronic Kidney Disease: No Chronic Liver Disease: No Chronic blood disorder like Sickle Cell Disease: No Weak immune system due to disease or medication: No Neurologic condition that limits movement: No Developmental delay - Moderate to Severe: No Recent (within past 2 weeks) or current : No Morbid Obesity (>100 pounds over ideal weight): No - Objective Temperature: 97.6 F Pulse Rate: 59 Respiratory Rate: 18 Blood Pressure: 127/68 O2 Sat by Pulse Oximetry: 95 Objective: Patient is a well-appearing 59-year-old male who presents today for COVID-19 screening. Disposition: Home; Selfcare General - General Stated Complaint: Upper respiratory symptoms x2 days Mode of Arrival: Ambulatory Information source: Patient Notes: The patient was evaluated during the global COVID-19 pandemic. That diagnosis was suspected/considered upon initial presentation. Their evaluation, treatment, and testing was consistent with current guidelines for patients who present with complaints or symptoms that may be related to COVID-19. - HPI Patient complains to provider of: Upper respiratory symptoms Onset: Other - 2 days Onset/Duration: Persistent Quality of pain: No pain Severity: None Pain Level: Denies Associated symptoms: Chills, Nonproductive cough, Headache, Rhinnorhea, Shortness of breath Exacerbated by: Denies Relieved by: Denies Similar symptoms previously: No Recently seen / treated by doctor: No - Related Data Allergies/Adverse Reactions: No Known Allergies Allergy (Verified 12/24/16 14:35) Past Medical History - Social History Smoking Status: Never Smoker Cigarette use (# per day): No Chew tobacco use (# tins/day): No Smoking Education Provided: No Frequency of alcohol use: Social Drug Abuse: None 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 denies: Arthritis, CVA, Thyroid Disfunction Patient has suicidal ideation: No Patient has homicidal ideation: No - Past Medical History Cardiac Medical History: Reports: Hx DVT, Hx Hypercholesterolemia Other: Reports history of multiple sinus surgeries. Renal/ Medical History: Denies: Hx Peritoneal Dialysis GI Medical History: Reports: Hx Gastritis, Hx Gastroesophageal Reflux Disease, Hx Colonoscopy Other: Reports history of gastric bypass surgery. Musculoskeletal Medical History: Reports Hx Arthritis, Reports Hx Musculoskeletal Deformity, Reports Hx Musculoskeletal Trauma Psychiatric Medical History: Reports: Hx Depression Traumatic Medical History: Reports: Hx Fractures - Nose Past Surgical History: Reports: Hx Appendectomy, Hx Cardiac Surgery - VSD closed at age 7, Hx Gastric Bypass Surgery, Hx Nose Surgery, Hx Orthopedic Surgery - Meniscus repair Physical Exam - General In distress: None Notes: PHYSICAL EXAMINATION: GENERAL: Well-appearing and in no acute distress. HEAD: Atraumatic, normocephalic. EYES: sclera anicteric, conjunctiva are normal. ENT: nares patent. Moist mucous membranes. NECK: Normal range of motion, supple without lymphadenopathy. LUNGS: CTAB and equal. No wheezes rales or rhonchi. HEART: Regular rate and rhythm without murmurs. EXTREMITIES: Normal range of motion, no pitting edema. No cyanosis. BACK: No midline or CVA tenderness. NEUROLOGICAL: Cranial nerves grossly intact. Normal speech. PSYCH: Normal mood, normal affect. SKIN: Warm, Dry, normal color and turgor, no obvious lesions or rash noted. Diagnostic Results Laboratory Results: Patient advised at this time they are considered a Person Under Investigation (PUI) for the COVID-19 Coronavirus. They have been made aware it is currently taking 3-5 days to receive their results, and [facility] Department will call to advise them of their result, whether it is POSITIVE or NEGATIVE. Patient Education/Counseling Counseling/Education: Patient presents with upper respiratory symptoms worrisome for possible COVID- 19. Patient does not have symptoms worrisome as an emergency such as difficulty breathing, shortness of breath, chest pain, pressure, confusion or cyanosis. Patient appears suitable for discharge. Patient's vital signs are stable and patient is nontoxic in appearance. Good return precautions have been discussed with patient, patient verbalized understanding and is agreeable with discharge plan of care at this time. Patient provided COVID-19 discharge instructions to include: As a person under investigation for COVID-19, the [facility], division of public health advises you to adhere to the following guidance until your test results are reported to you. If your test result is positive, you will receive additional information from your provider and your local health department at that time. Remain at home until you are cleared by the health provider or public health authorities. Keep a log of visitors to your home, notify any visitors to your home of your isolation status. If you plan to move to a new address or leave the county, notify the local health department in your County. Call your doctor or seek care if you have an urgent medical need. Before seeking medical care, call ahead to get instructions from the provider before arriving at the medical office clinic or hospital. Notify them that you are being tested for the virus that causes COVID-19 so that arrangements can be made, as necessary, to prevent transmission to others in the healthcare setting. Next, notify the local health department in your county. If a medical emergency arises and you need to call 911, inform dispatch and the first responders that you are being tested for the virus that causes COVID-19. Next, notify the local health department in your county. Guidance for worsening S/SX: For worsening symptoms, patient has been advised to contact their Primary Care Provider, or go to the nearest Emergency Department. RDC Discharge - Discharge Clinical Impression: COVID-19 Screening URI (upper respiratory infection) Qualifiers: URI type: unspecified URI Qualified Code(s): J06.9 - Acute upper respiratory infection, unspecified Condition: Stable Disposition: Home; Selfcare
[2019-07-27 13:33] VITALS: BP 127/68
== END ==
LOC: RDC 12:47
PROVIDERS: ATTEND Nurse Practitioner Family
DX: Z20.828 Contact with and (suspected) exposure to other viral communicable diseases (principal)
CPT/HCPCS: 87635; C9803; 99201; 99211